=== PATIENT | female | born 1970 | race Caucasian/White ===

== ENCOUNTER 2022-02-21 05:30 | Inpatient (IN) | payer BC ==
[~2022-02-21] VITALS: Ht 172.7 cm; Wt 65.8 kg
[2022-02-21] MEDS ORDERED: cefOXitin SODIUM 2 GM in D5W 100 ML IV ONE (07:00)
[2022-02-21] MEDS ORDERED: BUPIVACAINE LIPOSOME/PF 266 MG/20 ML VIAL INFIL ONE (07:52)
[2022-02-21] MEDS ORDERED: LR 1,000 ML IV.SOLN IV ONE (08:14)
[2022-02-21] MEDS ORDERED: NS IRRIG SOLN 1000 ML IR ONE (08:14)
[2022-02-21] MEDS ORDERED: KETOROLAC TROMETHAMINE 30 MG VIAL IVP ONE (08:14)
[2022-02-21] MEDS ORDERED: NS 1000 ML IV.SOLN IV ONE (08:14)
[2022-02-21] MEDS ORDERED: ROCURONIUM BROMIDE 10 MG/ML (ZEMURON) IV ONE (08:14)
[2022-02-21] MEDS ORDERED: SEVOFLURANE 15 MIN GAS INH ONE (08:14)
[2022-02-21] MEDS ORDERED: CEFAZOLIN 2 GM IVPB PREMIX 50 ML IV ONE (08:14)
[2022-02-21] MEDS ORDERED: PROPOFOL 200MG/ 20ML VIAL (DIPRIVAN) IV ONE (08:14)
[2022-02-21] MEDS ORDERED: HYDROcodone/ACETAMIN 5-325 MG TAB (NORCO/ VICODIN) PO PRN (11:00)
[2022-02-21] MEDS ORDERED: NALOXONE HCL 0.4 MG/ML AMP (NARCAN) IVP PRN ×4 (11:00→11:30)
[2022-02-21] MEDS: D5/0.45 NS 1,000 ML IV SCH ×2 (11:00→20:27)
[2022-02-21] MEDS ORDERED: ONDANSETRON HCL 4 MG/2 ML VIAL IVP PRN (11:30)
[2022-02-21] MEDS ORDERED: KETOROLAC TROMETHAMINE 30 MG VIAL IVP PRN (11:30)
[2022-02-21] MEDS ORDERED: LR 1,000 ML IV SCH (11:30)
[2022-02-21] MEDS ORDERED: LABETALOL 100 MG/ 20ML VIAL IVP PRN (11:30)
[2022-02-21] MEDS ORDERED: HYDROmorphone 1 MG/ML INJ. CARTRIDGE IVP PRN ×2 (11:30)
[2022-02-21 11:43] LABS: HEMATOCRIT 41.9 % (36-48); HEMOGLOBIN 14.2 g/dL (12.0-16.0)
[2022-02-21] MEDS ORDERED: HYDROmorphone 2 MG/ML VIAL ONE (11:46)
[2022-02-21 11:57] LABS: CALCIUM 8.8 mg/dL (8.4-11.0); CREATININE 0.93 mg/dL (0.55-1.30); POTASSIUM 3.7 mmol/L (3.5-5.1)
[2022-02-21 12:16] VITALS: BP_SYST 103
--- NOTE | 2022-02-21 12:16 | NUR ---
transfer of care from pacu via gurney. patient is awake and alert no signs of any distress, breathing is equal . IS at bedside. report was endorsed by pacu nurse.
--- NOTE | 2022-02-21 12:41 | NUR ---
Report received from ALBERT Hopper for continuity of care. Patient stable. No distress. Vital signs taken. Patient noted to have abdominal binder with gideon. Lethargic at the moment. Ice chips at bedside. Patient responsive to verbal commands. Will continue to monitor. Call light within reach.
[2022-02-21 16:00] VITALS: BP_SYST 124
[2022-02-21] MEDS: ONDANSETRON HCL 4 MG/2 ML VIAL IVP PRN (18:23)
--- NOTE | 2022-02-21 19:30 | NUR ---
Report given to manager shift RN for continuity of care. Patient in stable condition. No distress noted.
[2022-02-21 20:00] VITALS: BP_SYST 131
--- NOTE | 2022-02-21 20:00 | NUR ---
OPENING NOTE Pt AOX4 and is sleeping and rates pain 7/10. Pt has IV patent with fluids infusing with no complaints. Pt is on R/A and sat's are 98%. Patient noted to have abdominal binder with gideon. Pt has F/C drainage to gravity with yellow color urine. Patient responsive to verbal commands. All safety measures in place and will continue to monitor.
[2022-02-21 20:16] VITALS: BP_SYST 134
[2022-02-21] MEDS: FAMOTIDINE PF 20 MG/2 ML VIAL IVP SCH (20:25)
[2022-02-21] MEDS: HYDROmorphone 1 MG/ML INJ. CARTRIDGE IVP PRN (20:27)
--- NOTE | 2022-02-21 20:30 | NUR ---
PAIN PT REPORTS PAIN LEVEL AT 7/10. PT GIVEN PRN DILAUDID FOR PAIN
[2022-02-21] MEDS ORDERED: cefOXitin SODIUM 2 GM/VIAL (MEFOXIN) ONE (20:47)
[2022-02-21] MEDS: cefOXitin SODIUM 2 GM in D5W 100 ML IV SCH (21:00)
[2022-02-22] VITALS (7 sets, daily range): BP systolic 109–131
[2022-02-22] MEDS: HYDROmorphone 1 MG/ML INJ. CARTRIDGE IVP PRN ×4 (03:05→22:52)
[2022-02-22] MEDS: D5/0.45 NS 1,000 ML IV SCH ×2 (05:16→17:41)
[2022-02-22 06:54] LABS: BASOPHILS % (AUTO) 0.3 % (0.0-2.0); EOSINOPHILS % (AUTO) 0.3 % (0.0-4.0); HEMATOCRIT 36.7 % (36-48); HEMOGLOBIN 12.8 g/dL (12.0-16.0); LYMPHOCYTES # (AUTO) 1.1 K/uL (1.0-5.5); MEAN CORPUSCULAR HEMOGLOBIN 30 pg (27-31); MEAN CORPUSCULAR HGB CONC 35 % (32-36); MEAN CORPUSCULAR VOLUME 87 fL (79.0-98.0); MONOCYTES # (AUTO) 0.8 K/uL (0.0-1.0); MONOCYTES % (AUTO) 8.4 % (1.7-9.3); NEUTROPHILS # (AUTO) 7.1 K/uL (1.8-7.7); PLATELET COUNT (AUTO) 177 K/uL (130-430); RED BLOOD CELL COUNT(AUTO) 4.23 MIL/uL (4.2-6.2); RED CELL DISTRIBUTION WIDTH 13.4 % (9.0-15.0)
[2022-02-22 07:06] LABS: ALBUMIN 2.9 g/dL (3.4-4.8); CALCIUM 8.5 mg/dL (8.4-11.0); CREATININE 0.7 mg/dL (0.55-1.30); POTASSIUM 3.7 mmol/L (3.5-5.1); TOTAL BILIRUBIN 0.6 mg/dL (0.0-1.0)
--- NOTE | 2022-02-22 08:30 | NUR ---
Report received from day shift RN for continuity of care. Patient stable resting at the moment.
[2022-02-22] MEDS: FAMOTIDINE PF 20 MG/2 ML VIAL IVP SCH ×2 (08:59→21:01)
[2022-02-22] MEDS: ONDANSETRON HCL 4 MG/2 ML VIAL IVP PRN ×2 (08:59→13:20)
[2022-02-22] MEDS: ENOXAPARIN SODIUM 30 MG/0.3 ML SYRINGE SUBCUT SCH (09:00)
[2022-02-22] MEDS: cefOXitin SODIUM 2 GM in D5W 100 ML IV SCH (09:34)
--- NOTE | 2022-02-22 13:34 | NUR ---
PHYSICAL THERAPY EVALUATION COMPLETED. PATIENT IS SAFE TO AMBULATE WITH NURSING ASSISTANCE AND WITH HER SPOUSE. SHE MAY USE THE FWW NEEDED. SHE UNDERSTANDS THAT SHE IS TO GET NURSING CLEARANCE FIRST, FOR SAFETY.
--- NOTE | 2022-02-22 13:40 | NUR ---
Patient reported scant blood when ambulating with PT. Inspected are with PHYLLIS Sahu. Scant, minimal red blood found on pad. Area perineal and rectal area cleaned. No blood coming out of area. Changed disposable pads. Dr. Calzada made aware.
[2022-02-22] MEDS: METOCLOPRAMIDE HCL 10 MG/2 ML VIAL IVP SCH ×2 (17:38→22:51)
[2022-02-22] MEDS: ACETAMINOPHEN 325 MG TABLET PO PRN ×2 (17:46→21:03)
--- NOTE | 2022-02-22 19:48 | NUR ---
Report given to platen press operator RN for continuity of care. Patient in stable condition. No distress noted.
[2022-02-23 01:02] VITALS: BP_SYST 115
[2022-02-23] MEDS: D5/0.45 NS 1,000 ML IV SCH ×3 (04:00→22:32)
[2022-02-23 04:39] VITALS: BP_SYST 119
[2022-02-23] MEDS: METOCLOPRAMIDE HCL 10 MG/2 ML VIAL IVP SCH ×3 (05:39→18:00)
[2022-02-23 08:00] VITALS: BP_SYST 136
[2022-02-23] MEDS: ONDANSETRON HCL 4 MG/2 ML VIAL IVP PRN ×2 (09:44→09:47)
[2022-02-23] MEDS: FAMOTIDINE PF 20 MG/2 ML VIAL IVP SCH ×2 (09:44→20:36)
[2022-02-23] MEDS: ENOXAPARIN SODIUM 30 MG/0.3 ML SYRINGE SUBCUT SCH (09:44)
[2022-02-23] MEDS: HYDROcodone/ACETAMIN 5-325 MG TAB (NORCO/ VICODIN) PO PRN ×2 (09:45→23:30)
[2022-02-23 12:11] VITALS: BP_SYST 128
[2022-02-23 15:49] VITALS: BP_SYST 115
[2022-02-23 20:52] VITALS: BP_SYST 119
[2022-02-24] MEDS: METOCLOPRAMIDE HCL 10 MG/2 ML VIAL IVP SCH ×2 (00:38→05:31)
[2022-02-24 04:55] VITALS: BP_SYST 118
[2022-02-24] MEDS: HYDROcodone/ACETAMIN 5-325 MG TAB (NORCO/ VICODIN) PO PRN ×3 (05:32→13:08)
[2022-02-24 08:00] VITALS: BP_SYST 129
[2022-02-24] MEDS: ENOXAPARIN SODIUM 30 MG/0.3 ML SYRINGE SUBCUT SCH (09:13)
[2022-02-24] MEDS: FAMOTIDINE PF 20 MG/2 ML VIAL IVP SCH (09:13)
[2022-02-24 13:14] VITALS: BP_SYST 129
[2022-02-24] MEDS ORDERED: ACET1TAB93 PO (13:34)
--- NOTE | 2022-02-24 16:26 | NUR ---
0800: NO S/S OF ANY ACUTE DISTRESS, INCISION ABDOMINAL AREA: RIGHT SIDE OF THE UMBILICUS AND LOW MID ABDOMEN WITH FERCHO INTACT NO DEHISCENCE, SWELLING OR DISCHARGE NOTED. WILL CONTINUE TO MONITOR PATIENT. 1130: DARK BROWNISH DISCHARGE FROM THE RECTUM, NO PAIN. RESIDUAL OLD GI OUTPUT. WILL CONTINUE TO MONITOR PATIENT. 1400: PATIENT DISCHARGE HOME PER DR. Namrata BARKSDALE, PRESCRIPTION PRN FOR PAIN ALREADY FILL BY PATIENT PREFER RX. INSTRUCTION REGARDING INCISION CARE AND F/U WITH DOCTOR BARKSDALE NEXT MONDAY. PATIENT AND SPOUSE BOTH VERBALIZE UNDERSTANDING AND WILL COMPLY WITH INSTRUCTION GIVEN.
== END 2022-02-24 14:00 | disposition home or self-care (01) | DRG 330 ==
LOC: SMU 05:30 → EDSTATUS 07:30 → SMU 12:11
PROVIDERS: ADMIT Colon & Rectal Surgery; ATTEND Colon & Rectal Surgery
PROC: 0DQP0ZZ Repair Rectum, Open Approach (ICD-10-PCS; 2022-02-21)
PROC: 0DTP0ZZ Resection of Rectum, Open Approach (ICD-10-PCS; principal; 2022-02-21 08:14)
DX: K62.3 Rectal prolapse (principal); Q43.8 Other specified congenital malformations of intestine; Z20.822 Contact with and (suspected) exposure to COVID-19
CPT/HCPCS: 36415; 80048; 80053; 85018; 85025; 87081; 88305; 88307; C9290; J0690; J0694; J1170; J1650; J1885; J2405; J2704; J2765; J3490; J7030; J7060; J7120; U0003